=== PATIENT | female | born 1970 | race Caucasian/White ===

== ENCOUNTER 2018-04-02 16:42 | Inpatient (IN) | payer MEDICAID ==
[~2018-04-02] VITALS: Ht 160 cm; Wt 72.6 kg
--- NOTE | 2018-04-02 16:43 | NUR ---
ISRRAEL PRAKASH ON 5150 HOLD, CURRENTLY AWAITING BED
[2018-04-02 16:45] VITALS: BP 156/74
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
--- NOTE | 2018-04-02 16:52 | NUR ---
EMT SITTER AT BEDSIDE
--- NOTE | 2018-04-02 16:52 | NUR ---
PT TAKEN TO BED 6 BY [facility] CREW
--- NOTE | 2018-04-02 16:52 | NUR ---
CALLED POISON CONTROL AT THIS TIME. TRICIA STATED TO WATCH FOR DROWSYNESS, TACHYCARDIA, HYPOTENSION, SERATONIN SYNDROM, AND SEZIURES. THEY RECOMENDED PT BE MONITORED FOR 6 HOURS. STATED TO LOOK AT LABS, AND VITALS AND TO CALL BACK IF PT WORSENS.
--- NOTE | 2018-04-02 16:53 | NUR ---
TELEPSYCH CONSULT REQUEST SUBMITTED REQUESTED BY DR SMART
[2018-04-02 17:26] LABS: BASOPHILS # (AUTO) 0.1 K/uL (0.00-0.22); BASOPHILS % (AUTO) 0.6 % (0.0-2.0); EOSINOPHILS # (AUTO) 0.1 K/uL (0-0.4); EOSINOPHILS % (AUTO) 0.4 % (0.0-4.0); HEMATOCRIT 44.1 % (36-48); HEMOGLOBIN 14.7 g/dL (12.0-16.0); LYMPHOCYTES # (AUTO) 1.5 K/uL (2.5-16.5); LYMPHOCYTES % (AUTO) 10.6 % (20.5-51.1); MEAN CORPUSCULAR HEMOGLOBIN 28 pg (27-31); MEAN CORPUSCULAR HGB CONC 33 g/dL (33-37); MEAN CORPUSCULAR VOLUME 85.3 fL (80-94); MONOCYTES # (AUTO) 1.1 K/uL (0.8-1.0); MONOCYTES % (AUTO) 7.8 % (1.7-9.3); NEUTROPHILS # (AUTO) 11.3 K/uL (1.8-7.7); NEUTROPHILS % (AUTO) 80.6 % (42.2-75.2); PLATELET COUNT (AUTO) 414 K/uL (140-450); RED BLOOD CELL COUNT(AUTO) 5.16 MIL/uL (4.20-5.40); RED CELL DISTRIBUTION WIDTH 13.6 % (11.6-13.7)
[2018-04-02 17:27] LABS: APPEARANCE,URINE CLEAR (CLEAR); BILIRUBIN,URINE NEGATIVE (NEGATIVE); BLOOD, URINE NEGATIVE (NEGATIVE); COLOR,URINE YELLOW (YELLOW); LEUKOCYTE ESTERASE ,URINE NEGATIVE (NEGATIVE); NITRITE, URINE NEGATIVE (NEGATIVE); PH,URINE 5.5 (5.0-9.0); UGLUCOSE NEGATIVE (NEGATIVE)
[2018-04-02 17:30] LABS: RBC,URINE 0-5 (RARE) /HPF (0-5); WBC,URINE 0-5 (RARE) /HPF (0-5)
[2018-04-02 17:31] LABS: CALCIUM OXALATE CRYSTALS,UR 30-50 /HPF (None Seen)
[2018-04-02 17:34] LABS: CARBON DIOXIDE 25.9 mmol/L (21-32); CREATININE 0.9 mg/dL (0.6-1.3); POTASSIUM 3.9 mmol/L (3.5-5.1)
[2018-04-02 17:36] LABS: BARBITURATE, URINE NEG. ng/ml (NEG <=200); BENZODIAZEPINE, URINE NEG. ng/mL (NEG <=200); CANNABINOID, URINE NEG. ng/mL (NEG <=50); COCAINE, URINE NEG. ng/mL (NEG <=300); OPIATE, URINE NEG. ng/mL (NEG <=2000); PHENCYCLIDINE SCREEN,URINE NEG. ng/mL (NEG <=25)
[2018-04-02 17:38] LABS: ACETAMINOPHEN < 0.5 ug/ml (10-30); SALICYLATE < 2.8 mg/dL (2.8-20.0)
[2018-04-02 17:47] LABS: PROTHROMBIN TIME 10.2 secs (10.8-13.4)
--- NOTE | 2018-04-02 18:15 | NUR ---
Patient being evaluated by physician at bedside.
--- NOTE | 2018-04-02 18:55 | NUR ---
gave report to dr alex, telepsych
--- NOTE | 2018-04-02 19:04 | NUR ---
TELEPSYCH CONSULT BEGAN FOR PT
--- NOTE | 2018-04-02 19:17 | NUR ---
TELEPSYCH CONSULT ENDED, PT LAYING IN BED CALM , RECEIVED REPORT FORM BERNY, WILL CONTINUE TO MONITOR.
--- NOTE | 2018-04-02 19:20 | NUR ---
SPOKE W/ DR WOLFE, WILL CONTINUE W/ 2083 HOLD
--- NOTE | 2018-04-02 20:55 | NUR ---
PT LAYING IN BED SLEEPING, WILL CONTINUE TO MONITOR.
--- NOTE | 2018-04-02 21:53 | NUR ---
[facility] beds [facility], s/w Abel. Packet was faxed. [facility], s/w Monse, packet was faxed. [facility], s/w Sun, packet was faxed. [facility], s/w Ariella, packet was faxed. [facility], s/w Bandar, packet was faxed. [facility], no answer, left message. [facility], s/w Cheyanne, packet was faxed. [facility], s/w Emily, packet was faxed. [facility], s/w Juan.
--- NOTE | 2018-04-02 21:57 | NUR ---
PT LAYING IN BED VSS, WILL CONTINUE TO FIND PLACEMENT FOR PT.
[2018-04-02] MEDS ORDERED: HYDROcodone/APAP 7.5/325 MG 1 TAB PO PRN (22:55)
[2018-04-02] MEDS ORDERED: ONDANSETRON 4 MG/2 ML VIAL IM/IVP PRN (22:55)
[2018-04-02] MEDS ORDERED: DOCUSATE SODIUM 100 MG GELCAP PO PRN (22:55)
[2018-04-02] MEDS ORDERED: ACETAMINOPHEN 325 MG TAB PO PRN (22:55)
--- NOTE | 2018-04-02 23:51 | NUR ---
PT ADMITTED TO HOSPITAL , PENDING ONCALL NURSE TO TAKE TO FLOOR.
[2018-04-03] MEDS ORDERED: IBUPROFEN 400 MG TAB PO ONE
[2018-04-03] MEDS: NACL 0.9% 1,000 ML IV SCH ×2 (00:19→08:55)
--- NOTE | 2018-04-03 00:56 | NUR ---
REPORT GIVEN TO EDILRN, PT ADMITTED TO [facility], TO CARE OF DR MANZANARES, PT TO BED 109-B VIA WHEELCHAIR.
[2018-04-03] MEDS ORDERED: METF-430 PO (01:04)
[2018-04-03] MEDS ORDERED: BUSP15TA4 PO (01:04)
[2018-04-03] MEDS ORDERED: DEXTROSE 50% 50 ML SYR IVP PRN (01:20)
[2018-04-03] MEDS ORDERED: INSULIN LISPRO SLIDING SCALE 100 UNITS/ML VIAL SUBQ PRN (01:20)
[2018-04-03 01:45] VITALS: BP 126/70
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
--- NOTE | 2018-04-03 06:01 | NUR ---
PT BS CHECKED, 80. NO COVERAGE NEEDED PER MD ORDERS.
[2018-04-03] MEDS: BLOOD GLUCOSE MONITORING 1 DEV DEV FS SCH ×2 (06:14→11:18)
[2018-04-03] MEDS ORDERED: LORazepam 2 MG/ML VIAL IVP PRN (06:30)
[2018-04-03 07:10] LABS: BASOPHILS # (AUTO) 0.1 K/uL (0.00-0.22); BASOPHILS % (AUTO) 0.7 % (0.0-2.0); EOSINOPHILS # (AUTO) 0.1 K/uL (0-0.4); EOSINOPHILS % (AUTO) 1.2 % (0.0-4.0); HEMATOCRIT 40.9 % (36-48); HEMOGLOBIN 13.7 g/dL (12.0-16.0); LYMPHOCYTES # (AUTO) 1.6 K/uL (2.5-16.5); LYMPHOCYTES % (AUTO) 17.7 % (20.5-51.1); MEAN CORPUSCULAR HEMOGLOBIN 29 pg (27-31); MEAN CORPUSCULAR HGB CONC 34 g/dL (33-37); MEAN CORPUSCULAR VOLUME 85.6 fL (80-94); MONOCYTES # (AUTO) 0.9 K/uL (0.8-1.0); MONOCYTES % (AUTO) 9.8 % (1.7-9.3); NEUTROPHILS # (AUTO) 6.4 K/uL (1.8-7.7); NEUTROPHILS % (AUTO) 70.6 % (42.2-75.2); PLATELET COUNT (AUTO) 361 K/uL (140-450); RED BLOOD CELL COUNT(AUTO) 4.78 MIL/uL (4.20-5.40); RED CELL DISTRIBUTION WIDTH 13.8 % (11.6-13.7); WHITE BLOOD COUNT (AUTO) 9.1 K/uL (4.8-10.8)
--- NOTE | 2018-04-03 07:10 | NUR ---
ENDORSED PT TO DAYS SHIFT NURSE, STAR, FOR CONTINUITY OF CARE. PT IN STABLE CONDITION. Addendum: 04/03/18 at 0743 by Vanessa Enamorado RN 1:1 SITTER IN ROOM
--- NOTE | 2018-04-03 07:30 | NUR ---
RECEIVED PT REPORT FROM SUPERVISOR [employer] DIVISION NURSE. PT IS SLEEPING AT THIS TIME, NO S/S OF DISTRESS NOTED. PT IS ON ROOM AIR, SKIN INTACT. IV SITE NOTED ON R AC, 20 GAUGE. NS INFUSING AT 100 ML/HR. BED LOW. SITTER IS WITH THE PATIENT. WILL CONTINUE TO MONITOR.
[2018-04-03 08:00] VITALS: BP 120/73
[2018-04-03] MEDS ORDERED: metFORMIN 500 MG TAB PO SCH (08:00)
[2018-04-03] MEDS ORDERED: ESCITALOPRAM 20 MG TAB PO SCH (09:00)
[2018-04-03] MEDS ORDERED: INFLUENZA VIRUS VACCINE QUAD 0.5 ML SYR IMVAC PRN (09:00)
--- NOTE | 2018-04-03 09:23 | NUR ---
PATIENT HAS BEEN SCREENED AND CATEGORIZED MODERATE NUTRITION RISK. PATIENT WILL BE SEEN WITHIN 3-5 DAYS OF ADMISSION. 04/05/18 04/07/[address]
[2018-04-03 09:30] LABS: MAGNESIUM 1.9 mg/dL (1.8-2.4); PHOSPHORUS 3.6 mg/dL (2.5-4.9)
[2018-04-03 09:31] LABS: CHOL/HDL RATIO 1.7 (1-4.5)
[2018-04-03 09:33] LABS: ANION GAP 12.6 (8-16); CREATININE 0.8 mg/dL (0.6-1.3); POTASSIUM 3.6 mmol/L (3.5-5.1)
[2018-04-03 09:34] LABS: MAGNESIUM 1.9 mg/dL (1.8-2.4); PHOSPHORUS 3.6 mg/dL (2.5-4.9)
[2018-04-03 09:56] LABS: FREE T4 (FREE THYROXINE) 1.38 ng/dL (0.76-1.46); THYROID STIMULATING HORMONE 1.63 uIU/mL (0.34-3.74)
--- NOTE | 2018-04-03 10:51 | NUR ---
RECEIVED CALL FROM REI AT [facility] IN [place] AND PATIENT HAS BED RM [address] PEREZ, [place] [phone]. [address] [place] [address]. [place] [id number].
[2018-04-03] MEDS ORDERED: ESCI20TA47 PO (11:20)
--- NOTE | 2018-04-03 12:41 | NUR ---
CALLED AND GAVE REPORT TO PAMELA SANDOVAL AT [facility] ABOUT PT'S TRANSFER.
[2018-04-03 13:03] LABS: ALBUMIN 3.6 g/dL (3.4-5.0); TOTAL BILIRUBIN 0.4 mg/dL (0.0-1.0)
[2018-04-03 13:12] LABS: BILIRUBIN,DIRECT 0.1 mg/dL (0.0-0.3)
--- NOTE | 2018-04-03 14:10 | NUR ---
PT IS DISCHARGING TO [facility] AT THIS TIME. TRANSPORTED BY [facility]. FLU VACCINE ADMINISTERED. DISCHARGE DOCUMENTS GIVEN, PT VERBALIZED UNDERSTANDING. SIGNATURES OBTAINED. IV SITE DC'D, WRIST BAND REMOVED. PT LEFT WITH ALL HER BELONGINGS. [facility] WAS GIVEN A COPY OF PT'S CHART TO TAKE TO THE PSYCH FACILITY. PT LEFT IN STABLE CONDITION.
== END 2018-04-03 14:00 | DRG 817 ==
LOC: MED 16:42 → MTU 22:57
PROVIDERS: ADMIT General Practice; ATTEND General Practice
DX: T43.592A Poisoning by other antipsychotics and neuroleptics, intentional self-harm, initial encounter (principal); G92 Toxic encephalopathy; E11.65 Type 2 diabetes mellitus with hyperglycemia; R45.851 Suicidal ideations; F32.9 Major depressive disorder, single episode, unspecified; F43.9 Reaction to severe stress, unspecified; F41.9 Anxiety disorder, unspecified; Z23 Encounter for immunization; Y92.89 Other specified places as the place of occurrence of the external cause; Z90.49 Acquired absence of other specified parts of digestive tract; Z86.018 Personal history of other benign neoplasm; Z59.0 Homelessness
CPT/HCPCS: 36415; 71045; 80048; 80076; 80305; 81001; 81025; 82150; 82948; 83036; 83690; 83735; 83880; 84100; 84439; 84443; 84484; 85025; 85610; 85730; 87081; 90658; 96360; 99285; G0480; G0482; J1815; J7030; Q0092